=== PATIENT | female | born 1935 | race Caucasian/White ===

== ENCOUNTER → 2023-01-17 | Day surgery (SDC) | payer MEDICARE ==
[~2023-01-17] MED LIST: PROPOFOL 20 ML ONE
[2023-01-17 08:28] LABS: Anion Gap 14 mmol/L (10-20); BUN (Urea Nitrogen) 15 mg/dL (9.8-20.1); Calc. Creatinine Clearance 0 mL/min (70-130); Calcium 9.9 mg/dL (7.8-10.44); Carbon Dioxide 27 mmol/L (23-31); Chloride 99 mmol/L (98-107); Estimated GFR 65; Glucose 92 mg/dL (83-110); Potassium 3.7 mmol/L (3.5-5.1); Sodium 136 mmol/L (136-145)
[2023-01-17 09:06] VITALS: BP 134/86
== END ==
LOC: CSHSDC 06:58
PROVIDERS: ATTEND Specialist
DX: I48.11 Longstanding persistent atrial fibrillation (principal); I73.9 Peripheral vascular disease, unspecified; I10 Essential (primary) hypertension; I48.20 Chronic atrial fibrillation, unspecified; Z79.01 Long term (current) use of anticoagulants; Z79.899 Other long term (current) drug therapy
CPT/HCPCS: 80048; 92960; 93005; 93010; J2704

== ENCOUNTER 2023-03-14 07:04 | Day surgery (SDC) | payer MEDICARE ==
[2023-03-14 07:46] VITALS: BP 175/77; TEMP 97.7
[2023-03-14] MEDS ORDERED: Lidocaine 1% (PF) 30 ML VIAL ONE (07:54)
[2023-03-14] MEDS ORDERED: Heparin 10,000 UNITS/ 10 ML VIAL ONE (07:54)
[2023-03-14 08:14] LABS: #Basophils 0.1 10x3/uL (0.0-0.2); #Eosinphils 0.5 10x3/uL (0.0-0.5); #Monocytes 1.4 10x3/uL (0.0-1.1); #Neutrophils 14.7 10x3/uL (1.5-8.4); %Basophils 0.7 % (0.0-2.0); %Eosinophils 2.8 % (0.0-6.0); %Lymphocytes 10.1 % (18.0-47.0); %Monocytes 7.4 % (0.0-10.0); %Neutrophils 76.9 % (40.0-75.0); Hematocrit 41.3 % (34.9-44.5); Hemoglobin 13.9 g/dL (12.0-15.5); Mean Corpuscular HGB CONC 33.7 g/dL (32.0-36.0); Mean Corpuscular Volume 98.1 fl (81.6-98.3); Mean Platelet Volume 11.2 fl (7.4-10.4); Platelet Count 372 10x3/uL (150-450); RBC Distribution Width 15.6 % (11.5-14.5); Red Blood Cell (RBC) Count 4.21 10x6/uL (3.90-5.03); White Blood Cell (WBC) Count 19.1 10x3/uL (3.5-10.5)
[2023-03-14 08:15] LABS: PTT 33.8 sec (22.0-33.0); Prothrombin Time 10.7 sec (9.5-12.1)
[2023-03-14 08:17] LABS: Anion Gap 14 mmol/L (10-20); BUN (Urea Nitrogen) 21 mg/dL (9.8-20.1); Calc. Creatinine Clearance 40 mL/min (70-130); Carbon Dioxide 27 mmol/L (23-31); Chloride 104 mmol/L (98-107); Estimated GFR 72; Glucose 90 mg/dL (83-110); Potassium 4.6 mmol/L (3.5-5.1); Sodium 140 mmol/L (136-145)
[2023-03-14] MEDS ORDERED: Midazolam HCl 2 mg/2 ml Vial ONE (08:25)
[2023-03-14] MEDS ORDERED: fentaNYL 50 mcg/mL 1 mL Vial ONE ×2 (08:25→09:12)
[2023-03-14] MEDS ORDERED: Iopamidol 300 61% 100 ML VIAL FS ONE (08:59)
== END 2023-03-14 12:30 | disposition home or self-care (01) ==
LOC: CSHCCL 07:04
PROVIDERS: ATTEND Specialist
DX: I73.9 Peripheral vascular disease, unspecified (principal); Z90.5 Acquired absence of kidney; I10 Essential (primary) hypertension; I48.0 Paroxysmal atrial fibrillation; Z79.02 Long term (current) use of antithrombotics/antiplatelets; Z79.899 Other long term (current) drug therapy
CPT/HCPCS: 37184; 37226; 75625; 75716; 75774; 80048; 85025; 85347 ×2; 85610; 85730; C1725; C1760; C1769 ×2; C1876; C1887; C1894 ×2; J3010; 93005; 93010; 99152; 99153; J1644; J2001; J2250; Q9967

== ENCOUNTER 2023-04-14 13:59 | Outpatient (CLI) | payer MEDICARE | END 2023-04-14 14:00 | disposition home or self-care (01) | LOC: CSHMAMMO 13:59 | PROVIDERS: ATTEND Family Medicine | DX: Z12.31 Encounter for screening mammogram for malignant neoplasm of breast (principal); N63.10 Unspecified lump in the right breast, unspecified quadrant; N63.20 Unspecified lump in the left breast, unspecified quadrant; Z80.3 Family history of malignant neoplasm of breast | CPT/HCPCS: 77063; 77067 ==

== ENCOUNTER 2023-05-13 13:08 | Outpatient (CLI) | payer MEDICARE | END 2023-05-13 13:09 | disposition home or self-care (01) | LOC: CSHMAMMO 13:08 | PROVIDERS: ATTEND Family Medicine | DX: N63.10 Unspecified lump in the right breast, unspecified quadrant (principal); N63.20 Unspecified lump in the left breast, unspecified quadrant | CPT/HCPCS: 77066; G0279 ==

== ENCOUNTER 2023-07-25 07:07 | Day surgery (SDC) | payer MEDICARE ==
[2023-07-25 07:54] LABS: Anion Gap 12 mmol/L (10-20); BUN (Urea Nitrogen) 26 mg/dL (9.8-20.1); Calc. Creatinine Clearance 0 mL/min (70-130); Calcium 9.3 mg/dL (7.8-10.44); Carbon Dioxide 24 mmol/L (23-31); Chloride 105 mmol/L (98-107); Estimated GFR 64; Glucose 83 mg/dL (83-110); Sodium 137 mmol/L (136-145)
[2023-07-25 08:07] VITALS: BP 148/59; TEMP 97.3
[2023-07-25] MEDS ORDERED: PROPOFOL 200 MG/20 ML VIAL ONE (12:00)
[2023-07-26] MEDS ORDERED: FLU VACC QS2023(65UP)/MF59C/PF 60 MCG/0.5 ML SYRINGE IM ONE (09:00)
== END 2023-07-25 10:13 | disposition home or self-care (01) ==
LOC: CSHSDC 07:07
PROVIDERS: ATTEND Specialist
PROC: 5A2204Z Restoration of Cardiac Rhythm, Single (ICD-10-PCS; principal; 2023-07-25)
DX: I48.0 Paroxysmal atrial fibrillation (principal); I48.11 Longstanding persistent atrial fibrillation; I49.5 Sick sinus syndrome; I70.293 Other atherosclerosis of native arteries of extremities, bilateral legs; I10 Essential (primary) hypertension; D75.1 Secondary polycythemia; Z98.49 Cataract extraction status, unspecified eye; Z98.890 Other specified postprocedural states; Z90.5 Acquired absence of kidney; Z79.899 Other long term (current) drug therapy
CPT/HCPCS: 80048; 92960; 93005; 93010; J2704

== ENCOUNTER 2024-12-25 10:20 | Emergency (ER) | payer MEDICARE ==
[2024-12-25 10:52] LABS: #Basophils 0.12 10x3/uL (0.0-0.2); #Eosinophils 0.40 10x3/uL (0.0-0.5); #Monocytes 0.98 10x3/uL (0.0-1.1); #Neutrophils 18.09 10x3/uL (1.5-8.4); %Basophils 0.6 % (0.0-2.0); %Eosinophils 1.9 % (0.0-6.0); %Lymphocytes 5.8 % (18.0-47.0); %Monocytes 4.6 % (0.0-10.0); %Neutrophils 84.7 % (40.0-75.0); Hematocrit 37.0 % (34.9-44.5); Hemoglobin 12.4 g/dL (12.0-15.5); Mean Corpuscular Hemoglobin 31.5 pg (27.0-33.0); Mean Corpuscular Volume 93.9 fL (81.6-98.3); Platelet Count 482 10x3/uL (150-450); Red Blood Cell (RBC) Count 3.94 10x6/uL (3.90-5.03); White Blood Cell (WBC) Count 21.33 10x3/uL (3.5-10.5)
[2024-12-25 11:05] LABS: INR-International Normal Ratio 1.1; PTT 40.7 sec (22.0-33.0); Prothrombin Time 11.9 sec (9.5-12.1)
[2024-12-25 11:09] LABS: ALT (SGPT) 34 U/L (Less than 34); AST (SGOT) 48 U/L (11-34); Albumin 4.6 g/dL (3.1-4.5); Alkaline Phosphatase 81 U/L (40-110); Anion Gap 14 mmol/L (10-20); BUN (Urea Nitrogen) 23 mg/dL (9.8-20.1); Bilirubin, Total 0.6 mg/dL (0.3-1.2); Calc. Creatinine Clearance 0 mL/min (70-130); Calcium 9.3 mg/dL (7.8-10.44); Carbon Dioxide 24 mmol/L (23-31); Chloride 103 mmol/L (98-107); Globulin 3.2 g/dL (2.4-3.5); Glucose 109 mg/dL (83-110); Lipase 46 U/L (8-78); Potassium 3.7 mmol/L (3.5-5.1); Sodium 137 mmol/L (136-145)
[2024-12-25 11:12] LABS: Troponin I 0.018 ng/mL (< 0.028)
[2024-12-25] MEDS ORDERED: Magnesium 2 GM/50 ML BAG (IN WATER) ONE (11:16)
[2024-12-25 11:57] LABS: Glucose, Urine (Dipstick) Normal (Negative); Leukocyte Negative (Negative); Protein, Urine (Dipstick) 15 mg/dl (Neg-Trace); Specific Gravity, Urine 1.015 (1.005-1.030)
[2024-12-25 12:27] LABS: RBC/HPF None Seen HPF (0-3)
[2024-12-25 12:28] LABS: Bacteria/HPF Rare-Few HPF (None Seen); CAUTI Indications for Culture Alt mental st,lethar; Urine Culture Reflex No No; WBC/HPF None Seen HPF (0-3)
== END 2024-12-25 12:40 | disposition home or self-care (01) ==
LOC: CSHERS 10:20
DX: R00.0 Tachycardia, unspecified (principal); I10 Essential (primary) hypertension; I48.91 Unspecified atrial fibrillation; D45 Polycythemia vera; Z79.02 Long term (current) use of antithrombotics/antiplatelets; Z55.6 Problems related to health literacy; Z79.899 Other long term (current) drug therapy
CPT/HCPCS: 71045; 80053; 81001; 83690; 83880; 84484; 85025; 85610; 85730; 93005; J3475; 36415; 96374